=== PATIENT | male | born 1935 | race Caucasian/White ===

== ENCOUNTER 2017-11-16 17:57 | Emergency (ER) | payer MEDICARE, OTHER ==
[~2017-11-16] VITALS: Ht 180.3 cm; Wt 83.9 kg
[~2017-11-16 17:57] MED LIST: ACETAMINOPHEN-1 EAC1 PO; AMIODARONE HCL400 MG PO; ASPIR 8181 MG PO; ATORVASTATIN CA40 MG PO; BRILINTA90 MG PO; CIPROFLOXACIN500 M1 PO; COLACE100 MG PO; COREG3.125 MG PO; COREG6.25 MG PO; DIPHENHIST50 MG PO; EFFIENT10 MG PO; ENOXAPARIN100 MG/11 SUBQ; FLAGYL500 MG PO; HYDROCODON-ACE1 EAC7 PO; IMDUR 30 MG TAB30 M1 PO; LISINOPRIL2.5 MG PO; MORPHINE SULF1 MG/ML IV; MUCINEX TA600 MG/TA2 PO; NITROGLYCERIN0.4 MG SUBLING; NITROSTAT0.4 M1 SL; ONDANSETRON HCL4 M2 IV; PROTONIX40 M1 PO; RANEXA500 MG PO; VICODIN 5-5001 EACH PO
[2017-11-16] MEDS ORDERED: LISINOPRIL2.5 MG PO (18:13)
[2017-11-16] MEDS ORDERED: KEFLEX500 M1 PO (19:22)
[2017-11-16 19:45] VITALS: BP 154/90
== END 2017-11-16 20:24 | disposition home or self-care (01) ==
LOC: M.ERS 17:57
DX: S01.311A Laceration without foreign body of right ear, initial encounter (principal); I10 Essential (primary) hypertension; E78.00 Pure hypercholesterolemia, unspecified; Z95.5 Presence of coronary angioplasty implant and graft; Z98.890 Other specified postprocedural states; Z88.8 Allergy status to other drugs, medicaments and biological substances; W18.09XA Striking against other object with subsequent fall, initial encounter; Y93.89 Activity, other specified; Y92.89 Other specified places as the place of occurrence of the external cause; Y99.8 Other external cause status